=== PATIENT | male | born 2000 | race African-American/Black ===

== ENCOUNTER 2019-03-22 11:33 | Emergency (ER) | payer SELFPAY ==
[~2019-03-22] VITALS: Ht 175.3 cm; Wt 100.0 kg
[2019-03-22] MEDS ORDERED: KETOROLAC 60MG/2ML VIAL IM ONE (12:30)
[2019-03-22 13:46] VITALS: BP 153/91
== END 2019-03-22 14:30 | disposition home or self-care (01) ==
LOC: ER 11:33
DX: M25.571 Pain in right ankle and joints of right foot (principal); S93.401A Sprain of unspecified ligament of right ankle, initial encounter; W18.49XA Other slipping, tripping and stumbling without falling, initial encounter; Y93.01 Activity, walking, marching and hiking; Y92.480 Sidewalk as the place of occurrence of the external cause
CPT/HCPCS: 73610; 96372; 99283; J1885

== ENCOUNTER 2021-12-08 12:18 | Emergency (ER) | payer MEDICAID | END 2021-12-08 14:00 | disposition left against medical advice (07) | LOC: ER 12:18 | DX: Z53.21 Procedure and treatment not carried out due to patient leaving prior to being seen by health care provider (principal) ==

== ENCOUNTER 2021-12-20 08:56 | Emergency (ER) | payer MEDICAID ==
[~2021-12-20] VITALS: Ht 175.3 cm; Wt 102.0 kg
[2021-12-20 10:28] LABS: CHLORIDE 106 mEq/L (98-107)
[2021-12-20 10:30] LABS: HEMATOCRIT. 42.8 % (42.0-52.0); HEMOGLOBIN. 15.2 g/dL (14.0-18.0); MEAN CORPUSCULAR HEMOGLOBIN 30.5 pg (28.0-32.0); MEAN CORPUSCULAR VOLUME 85.9 fL (80.0-94.0); MEAN PLATELET VOLUME 7.8 fl (7.4-10.4); PLATELET 295 x1000/uL (130-400); RED BLOOD CELL COUNT 4.98 mill/uL (4.7-6.1); RED CELL DISTRIBUTION WIDTH 13.1 % (11.6-14.6)
[2021-12-20 10:37] LABS: CREATINE KINASE 249 IU/L (39-308)
[2021-12-20 10:58] LABS: CLARITY URINE CLEAR (CLEAR); COLOR URINE YELLOW (YELLOW); KETONES URINE NEGATIVE (NEGATIVE); LEUKOCYTE ESTERASE URINE NEGATIVE (NEGATIVE); NITRITE URINE NEGATIVE (NEGATIVE); OCCULT BLOOD URINE NEGATIVE (NEGATIVE); PH URINE 6.5 (4.5-8.0); PROTEIN URINE NEGATIVE (NEGATIVE); SPECIFIC GRAVITY URINE 1.023 (1.005-1.030)
[2021-12-20 11:10] LABS: PLATELET ESTIMATE NORMAL
[2021-12-20] MEDS ORDERED: ACETAMINOPHEN 325MG TABLET PO ONE (11:15)
[2021-12-20] MEDS ORDERED: IBUPROFEN 400MG TABLET PO ONE (11:15)
[2021-12-20 11:42] VITALS: BP 136/100
== END 2021-12-20 11:43 | disposition home or self-care (01) ==
LOC: ER 09:42
DX: R21 Rash and other nonspecific skin eruption (principal); M79.604 Pain in right leg; I10 Essential (primary) hypertension
CPT/HCPCS: 36415; 80053; 81003; 82550; 85025; 86703; 99283

== ENCOUNTER 2022-09-01 17:04 | Emergency (ER) | payer MEDICAID ==
[~2022-09-01] VITALS: Ht 175.3 cm; Wt 104.0 kg
[2022-09-01 17:41] VITALS: BP 165/100
== END 2022-09-01 21:57 | disposition left against medical advice (07) ==
LOC: ER 17:04
DX: Z53.21 Procedure and treatment not carried out due to patient leaving prior to being seen by health care provider (principal)

== ENCOUNTER 2023-05-03 11:27 | Emergency (ER) | payer MEDICAID, OTHER ==
[~2023-05-03] VITALS: Ht 175.3 cm; Wt 102.0 kg
[2023-05-03 11:35] VITALS: O2SAT 99
[2023-05-03] MEDS ORDERED: KETOROLAC 60MG/2ML VIAL IM STA (13:54)
[2023-05-03] MEDS ORDERED: NAPR-681 PO (15:07)
[2023-05-03] MEDS ORDERED: TRAM50TA3 MT (15:07)
[2023-05-03 16:10] VITALS: BP 102/68; PULSE 71; RESP 18; TEMP 98.6
== END 2023-05-03 16:10 | disposition home or self-care (01) ==
LOC: ER 11:27
DX: M54.42 Lumbago with sciatica, left side (principal); I10 Essential (primary) hypertension
CPT/HCPCS: 99283; 72100; 96372; J1885

== ENCOUNTER 2025-03-13 17:55 | Emergency (ER) | payer OTHER ==
[~2025-03-13] VITALS: Ht 175.3 cm; Wt 102.0 kg
[~2025-03-13 17:55] MED LIST: NAPR-681 PO; TRAM50TA3 MT
[2025-03-13 18:06] VITALS: O2SAT 99
[2025-03-13 20:09] LABS: CLARITY URINE CLEAR (CLEAR); COLOR URINE YELLOW (YELLOW); GLUCOSE URINE NEGATIVE (NEGATIVE); KETONES URINE NEGATIVE (NEGATIVE); LEUKOCYTE ESTERASE URINE NEGATIVE (NEGATIVE); NITRITE URINE NEGATIVE (NEGATIVE); OCCULT BLOOD URINE NEGATIVE (NEGATIVE); PH URINE 6.5 (4.5-8.0); PROTEIN URINE NEGATIVE (NEGATIVE); UROBILINOGEN URINE 0.2 E.U./dL (0.2-1.0)
[2025-03-13 20:38] VITALS: BP 147/96; PULSE 87; RESP 14; TEMP 36.9; O2SAT 100
== END 2025-03-13 20:48 | disposition home or self-care (01) ==
LOC: ER 17:55
DX: R33.9 Retention of urine, unspecified (principal); I10 Essential (primary) hypertension; Z79.899 Other long term (current) drug therapy
CPT/HCPCS: 81003; 99283

== ENCOUNTER 2025-09-11 07:35 | Emergency (ER) | payer MEDICAID, OTHER ==
[~2025-09-11] VITALS: Ht 182.9 cm; Wt 100.0 kg
[2025-09-11 07:51] VITALS: O2SAT 99
[2025-09-11] MEDS: LIDOCAINE HCL 1% 20ML VIAL INFIL ONE (11:00)
[2025-09-11] MEDS: IBUPROFEN 600MG TABLET PO ONE (11:00)
[2025-09-11] MEDS ORDERED: IBUP-1455 MT (13:04)
[2025-09-11] MEDS ORDERED: CLIN-194 MT (13:04)
[2025-09-11 13:25] VITALS: BP 154/80; PULSE 88; RESP 14; TEMP 36.6; O2SAT 100
== END 2025-09-11 14:25 | disposition home or self-care (01) ==
LOC: ER 08:13
DX: K61.0 Anal abscess (principal); Z87.19 Personal history of other diseases of the digestive system
CPT/HCPCS: 46050; 99284; J2003